=== PATIENT | male | born 1975 | race Caucasian/White ===

== ENCOUNTER → 2021-05-13 | Outpatient (CLI) | payer MEDICARE, OTHER | LOC: ECHO 11:01 → NM 05-14 13:00 | DX: I20.9 Angina pectoris, unspecified (principal); I48.0 Paroxysmal atrial fibrillation; R06.02 Shortness of breath | CPT/HCPCS: ECHO; 93017; 93306 ==

== ENCOUNTER → 2021-05-23 | Outpatient (CLI) | payer MEDICARE, OTHER ==
[~2021-05-23] MED LIST: CLINDAMYCIN HC300 MG PO; FENOFIBRATE54 MG PO; GABAPENTIN800 MG PO; HYDROCODON-ACE1 EAC4 PO; LEVOFLOXACIN750 MG PO; LISINOPRIL40 MG PO; METFORMIN HCL500 MG PO; TOPROL XL 50 MG50 MG PO; TRAMADOL HCL50 MG PO; XARELTO20 MG PO
[2021-05-23 13:08] LABS: HEMOGLOBIN 15.3 gm/dl (14.0-17.5); RED BLOOD COUNT 5.24 M/UL (4.20-5.50); WHITE BLOOD COUNT 9.1 K/UL (4.5-11.0)
[2021-05-23 13:18] LABS: BUN/CREATININE RATIO 12 (0-10)
== END ==
LOC: LAB 12:31
PROVIDERS: Internal Medicine Cardiovascular Disease
DX: I20.9 Angina pectoris, unspecified (principal); I49.5 Sick sinus syndrome; R06.02 Shortness of breath; Z45.010 Encounter for checking and testing of cardiac pacemaker pulse generator [battery]
CPT/HCPCS: 36415; 71046; 80048; 85025

== ENCOUNTER → 2021-05-27 | Outpatient (CLI) | payer MEDICARE, OTHER | LOC: CATH 07:05 | DX: Z45.010 Encounter for checking and testing of cardiac pacemaker pulse generator [battery] (principal); I48.0 Paroxysmal atrial fibrillation; I10 Essential (primary) hypertension; E11.9 Type 2 diabetes mellitus without complications; E78.1 Pure hyperglyceridemia; I20.9 Angina pectoris, unspecified; I49.5 Sick sinus syndrome; Z79.84 Long term (current) use of oral hypoglycemic drugs; Z79.02 Long term (current) use of antithrombotics/antiplatelets; Z79.899 Other long term (current) drug therapy; Z20.822 Contact with and (suspected) exposure to COVID-19 | CPT/HCPCS: 33213; 82962; 99152; 99153; C1785; J1200; J2250; J3010; J3370; J7040; J7050 ==